=== PATIENT | female | born 1950 | race Caucasian/White ===

== ENCOUNTER 2024-08-26 11:50 | Day surgery (SDC) | payer MEDICARE, OTHER, SELFPAY ==
[2024-08-24 13:12] VITALS: BMI 24.9
--- NOTE | 2024-08-25 09:39 | HO.ANESPROP2 ---
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 Osteoarthritis Atrophic vaginitis Kidney stone Chronic idiopathic constipation Dilation of aorta Cataract Tobacco user Mixed hyperlipidemia Surgical History Surgical History (Updated 08/26/24 @ 12:29 by Gavi Kraft RN) History of surgery H/O colonoscopy Social History Social History Patient Tobacco Use Status: Current everyday Tobacco user Tobacco use type: Cigarette Cigarettes Per Day: 3 Use of substances other than those prescribed or required for medical reasons: No Are you DNR?: No Advance Directives: No Advance Directives Information Provided: Yes Advance Directives on File: No Meds Allergies Allergy/AdvReac Type Severity Reaction Status Date / Time Iodinated Contrast Media Allergy Rash Verified 08/24/24 11:35 Home Medications ?Medication ?Instructions ?Recorded ?Confirmed ?Last Taken ?Type No Known Home Meds 08/24/24 08/24/24 Unknown History Exam Height,Weight and Vital Signs: Height 5 ft 4 in Weight 65.771 kg Assessment and Plan Assessment Anesthesia Assessment: Chart Reviewed Documented by User: Tiburcio Martini MD 08/26/24 13:07 [facility] Past Medical History Medical History (Updated 08/24/24 @ 13:06 by Brittni Licona RN) 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 Osteoarthritis Atrophic vaginitis Kidney stone Chronic idiopathic constipation Dilation of aorta Cataract Tobacco user Mixed hyperlipidemia Family History Family history of problems with anesthesia: No Surgical History Surgical History (Updated 08/26/24 @ 12:29 by Gavi Kraft RN) History of surgery H/O colonoscopy History of Problems with Anesthesia: No Social History Social History Patient Tobacco Use Status: Current everyday Tobacco user Tobacco use type: Cigarette Cigarettes Per Day: 3 Use of substances other than those prescribed or required for medical reasons: No Are you DNR?: No Advance Directives: No Advance Directives Information Provided: Yes Advance Directives on File: No Meds Allergies Allergy/AdvReac Type Severity Reaction Status Date / Time Iodinated Contrast Media Allergy Rash Verified 08/24/24 11:35 Home Medications ?Medication ?Instructions ?Recorded ?Confirmed ?Last Taken ?Type No Known Home Meds 08/24/24 08/24/24 Unknown History Exam Airway Mallampati Class: II TM Dist: >3cm Neck ROM: Full Loose/Missing/Broken Teeth: No Heart: ok Lungs: ok Assessment and Plan Assessment Anesthesia Assessment: Anesthesia Plan Discussed Final Anesthetic Review Family History of Problems with Anesthesia: No History of Problems with Anesthesia: No NPO: Yes ASA Class: II Final Preanesthetic Review: No Changes in Pt Med Stat, Meds/Allgs Chart Reviewed, Consent Obtained/Reviewed and Anes Risks/Benef Reviewed Patient Risk: Low Procedure Risk: Low Anesthetic Plan Anesthetic Plan: MAC: and Agree w/ Assess. and Plan Disposition: Standard PACU
[2024-08-26 12:30] VITALS: BMI 24.1
[2024-08-26 12:52] VITALS: BP 116/63; PULSE 57; RESP 16; TEMP 37.1; O2SAT 96
[2024-08-26] MEDS: Lactated Ringers 1,000 ML 100 ML IVCONT (13:00)
[2024-08-26 13:48] VITALS: BP 103/56; PULSE 62; RESP 17; TEMP 36.1; O2SAT 93
[2024-08-26 13:50] VITALS: BP 110/62; PULSE 56; RESP 17; O2SAT 95
[2024-08-26 13:55] VITALS: BP 104/56; PULSE 56; RESP 17; O2SAT 97
[2024-08-26 14:00] VITALS: BP 113/64; PULSE 59; RESP 17; O2SAT 97
[2024-08-26 14:05] VITALS: BP 115/62; PULSE 58; RESP 16; TEMP 36.8; O2SAT 97
--- NOTE | 2024-08-26 23:54 | OP_ITS ---
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 PROCEDURE PERFORMED: Neurectomy of the 3rd interspace of the left foot. ESTIMATED BLOOD LOSS: None. COMPLICATIONS: ANESTHESIA: MAC anesthesia with a total local block of 17 cc of 50:50 of 0.5% plain Marcaine and 2% plain lidocaine. ASSISTANTS: SPECIMENS: MATERIALS: 3-0 Vicryl, 3-0 nylon. INJECTABLES: None. Patient did receive cefazolin 2 g via IV through the anesthesiologist during procedure. CONDITION: Patient tolerated the procedure and anesthesia well. Patient was sent to recovery room in good stable condition with vital signs stable as per Anesthesia. It must be noted that there was adequate perfusion of all the toes following the procedure. INDICATION: Patient has been a patient of mine for sometime now and actually has had a successful neurectomy of the other foot done about 7 years ago. Patient has exhausted all conservative care of the foot and requested surgical removal of the neuroma. DESCRIPTION OF PROCEDURE: Patient was brought into the operating room via gurney and placed on the operating room table in the supine position. Once patient was given anesthetic by the anesthesiologist, I administered a local block. A 15-blade was used in order to make an incision proximally over the 3rd interspace of the left foot. A 15-blade was used in order to make a 3 cm linear incision over the area. Blunt and sharp dissection was used in order to go down to the neuroma. Once the intermetatarsal ligament was visualized, it was cut distally structure was identified. It was identified as a neuroma. It was removed completely using blunt and sharp dissection. Both distal and proximal branches of neuroma were removed and cauterized. It must be noted that this was sent to pathology. Once this was done, copious amounts of normal sterile saline were infiltrated into the area. I lavaged it and there was view that the neuroma was removed in toto. Next, 3-0 Vicryl was used in order to sew up the deep layers and 3-0 nylon for the skin edges. Xeroform was used over the incision site followed by dry sterile dressing. Patient was given an Arben bandage as well. Patient was provided a surgical pneumatic boot prior to the surgery as well as all prescriptions. Patient was sent to recovery room in good, stable condition with anesthesia. Vital signs were stable. Patient was provided with all postop instructions, postop pain medicines, and antibiotics prior to the procedure day. Patient will follow up with me in 3 to 4 days in my office. HEMOSTASIS: None. REPAIRER VENEER SHEET: None. BRANDI Riley/BRITTNEY / [phone]
== END 2024-08-26 14:09 | disposition home or self-care (01) ==
PROVIDERS: PCP Family Medicine; Visit Provider Podiatrist
PROC: (CPT 28080; principal; 2024-08-26 13:30)
DX: G57.62 Lesion of plantar nerve, left lower limb (principal); M79.672 Pain in left foot; I77.819 Aortic ectasia, unspecified site; E78.2 Mixed hyperlipidemia; Z87.442 Personal history of urinary calculi; Z98.890 Other specified postprocedural states; Z91.041 Radiographic dye allergy status; F17.210 Nicotine dependence, cigarettes, uncomplicated
CPT/HCPCS: 28080; 88304; J0665; J0690; J1100; J2003; J2250; J2704; J3010